=== PATIENT | male | born 2000 | race Caucasian/White ===

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

== ENCOUNTER 2019-02-04 12:31 | Emergency (ER) | payer MEDICAID, SELFPAY ==
[2019-02-04 12:32] VITALS: BP 122/69; PULSE 87; RESP 16; TEMP 36.5; O2SAT 97; BMI 19.1
--- NOTE | 2019-02-04 12:44 | CT_ITS ---
STUDY: CT BRAIN WITHOUT CONTRAST REASON FOR EXAM: Male, 18 years old. Intermittent syncopal episodes over the last 3-4 months RADIATION DOSAGE (If Supplied By Facility): CTDIvol = ( 44.99 ) mGy, DLP = ( 796.11 ) mGycm TECHNIQUE: Transaxial CT imaging of the brain was performed without administration of intravenous contrast material. Individualized dose optimization techniques were used for this CT. COMPARISON: No relevant priors. FINDINGS: Normal soft tissue structures. Normal calvarium. Normal size ventricles and extra-axial spaces for the patient's age. Normal white matter tracts of the cerebral hemispheres. Normal basal ganglia and thalami. Normal brainstem. There is mild ectopia of the cerebellar tonsils (sagittal image 35). There is no intracranial hemorrhage. There are no findings of an acute ischemic infarction. Normal visualized paranasal sinuses. CT/Brain/Head without Contrast IMPRESSION: 1. No acute intracranial hemorrhage or mass effect. 2. Cerebellar tonsillar ectopia. Electronically Signed: Catracho Jaramillo MD at 13:19 EDT , Service support ,
--- NOTE | 2019-02-04 12:45 | EKG12_ITS ---
Test Reason : SYNCOPE Blood Pressure : / mmHG Vent. Rate : 064 BPM Atrial Rate : 064 BPM P-R Int : 138 ms QRS Dur : 086 ms QT Int : 394 ms P-R-T Axes : 047 075 059 degrees QTc Int : 406 ms Normal sinus rhythm with sinus arrhythmia Normal ECG Confirmed by VAN OAKES, PIEDAD ([id number]), film editor supervisor FIONA GREENE ([id number]) on 02/07/2019 9:29:10 AM Referred By: MARILYNN Confirmed By:PIEDAD ARAUJO MD
[2019-02-04] MEDS: 0.9% Normal Saline 1,000 ML 1000 ML IV (13:00)
[2019-02-04 13:10] LABS: Absolute Lymphocyte Count 1.58 X10^3/ul (0.83-4.51); Absolute Neutrophil Count 2.4 X10^3/uL (2.0-7.7); Basophil# 0.03 X10^3/uL; Basophil% 0.7 % (0-1); Eosinophils% 2.2 % (0-5); Hematocrit 49.4 % (40-54); Hemoglobin 17.5 g/dl (13.0-16.5); Lymphocyte # 1.58 X10^3/ul (4.0); Lymphocyte % 35.2 % (19-41); Mean Corp Hgb Conc 35.4 g/gl (32-36); Mean Corpuscular Hgb 31.3 pg (27.0-32.0); Mean Corpuscular Volume 88.2 fL (80-94); Mean Platelet Vol. 9.7 fl (6.2-12.0); Monocyte# 0.37 X10^3/uL; Monocyte% 8.2 % (0-10); Neutrophil % 53.5 % (47-70); Platelet Count 161 K/mm3 (150-450); RBC Distribution Width CV 12.2 % (11.6-14.6); RBC Distribution Width SD 39.7 fl (35.1-43.9); White Blood Count 4.5 K/mm3 (4.4-11.0)
[2019-02-04 13:11] LABS: POSITIVE COUNT NO; POSITIVE DIFFERENTIAL NO; POSITIVE MORPHOLOGY NO
[2019-02-04 13:12] VITALS: BP 117/66; BP 119/65; BP 123/67; PULSE 70; PULSE 72; PULSE 83
[2019-02-04 13:21] LABS: Anion Gap 2 (5-15); BUN 11 mg/dL (7-18); Calcium,Total 9.6 mg/dL (8.5-10.1); Chloride 107 mmol/L (98-107); EST Glomerular Filtration Rate 102 mL/min (>60); Est Glom Filt Rate - Afr Amer 123 mL/min (>60); Estimated Creatinine Clearance 110.68 ml/min; Glucose 72 mg/dL (74-106); Potassium 3.9 mmol/L (3.5-5.1); Sodium Level 139 mmol/L (136-145)
--- NOTE | 2019-02-04 13:21 | ED.DCSUM_ITS ---
- ER Visit Summary Date of Service: 02/04/19 Chief Complaint: [Syncope] History of Present Illness: The patient is a 18 M [presents the emergency department with syncopal episodes for the last 3 to 4 months. Patient states that often times she will pass out 3 or 4 times a day. Patient states that he just feels like everything goes black and he gets tunnel vision and that the last thing he remembers until he wakes up on the floor. He denies any injuries. Patient did pass out this morning. Girlfriend who is with him states that oftentimes she will just stare before passing out and will become unresponsive. She is noticed some intermittent twitching but no continuous seizure-like activity. He has not had any urine or bowel incontinence. He does not have bite wounds related to these episodes. Denies recent illness. He does not have a seizure history. Girlfriend states that she is checked his pulse at times and it feels like his heart is racing but she did not actually determine the right. Patient describes intermittent left-sided chest discomfort. He did complain of intermittent shortness of breath. No family history of Marfan syndrome or connective tissue disorder.] Physical Examination: [HEENT-PERRLA, EOMI. Cranial nerves II through XII grossly intact. TMs clear. Mucous membranes moist. No adenopathy. Cardiovascular-regular rate and rhythm without murmur or ectopy Lungs-clear to auscultation, chest wall stable without crepitus or subcu emphysema Abdomen-normoactive bowel sounds, soft, nontender, no rebound or rigidity, no peritoneal signs. Extremities-intact ?4, normal range of motion, normal pulses, atraumatic] Test Results: [CBC with differential obtained normal. Chemistries unremarkable. Orthostatics were negative. D-dimer is less than 27. EKG obtained arrival shows sinus rhythm with a ventricular rate of 64 bpm with no acute I segment changes. CT scan of the brain without contrast showed mild cerebellar ectopia. I discussed case with neurology at this point I do not believe patient is having seizure like activity and neurologist did not believe the cerebellar ectopia was significant in this instance as far as causing symptoms. I also discussed case with cardiology who recommended Holter monitor and outpatient follow-up for echo and possibly tilt table testing.] Emergency Department Course and Treatment: [Follow-up with cardiology. Patient will have a Holter monitor applied. Patient advised to lay down if he feels symptoms coming on.] Treatment Plan: [Holter monitor and follow-up with cardiology] Disposition: [Discharged home in stable condition] Impression: [Syncope-etiology uncertain] This note was generated with [employer] dictation software. It may contain incorrect words, spelling, and punctuation that were not noted in review of the chart prior to signing ED Disposition - Plan for ED Patient: Referrals: Care Physician,No Primary [Primary Care Provider] -
[2019-02-04 13:31] LABS: D-Dimer Quantitative (DVT/PE) < 0.27 FEU/ug/m (0.27-0.49)
--- NOTE | 2019-02-04 13:45 | ED.DEP ---
ED Disposition - Plan for ED Patient: Instructions: ED Fainting Unkn Cause Referrals: Care Physician,No Primary [Primary Care Provider] - Leigha Sharma MD [STAFF PHYSICIAN] - 3-5 Days
[2019-02-04 14:14] VITALS: BP 103/63; PULSE 60; RESP 17
== END 2019-02-04 14:15 | disposition home or self-care (01) ==
PROVIDERS: Emergency Provider Emergency Medicine
DX: R55 Syncope and collapse (principal); Z72.0 Tobacco use
CPT/HCPCS: 70450; 80048; 85025; 85379; 93005; 93225; 93226; 96360; 99284; A4216

== ENCOUNTER → 2019-02-04 13:59 | Outpatient (CLI) | payer MEDICAID, SELFPAY ==
[2019-02-04 12:32] VITALS: BMI 19.1
== END ==
PROVIDERS: Visit Provider Emergency Medicine
DX: R55 Syncope and collapse (principal)
CPT/HCPCS: 93225; 93226

== ENCOUNTER 2019-05-20 01:00 | Emergency (ER) | payer MEDICAID, SELFPAY ==
[2019-05-20] VITALS (12 sets, daily range): BP systolic 115–134; BP diastolic 65–78; PULSE 54–96; RESP 14–18; TEMP 36.7; O2SAT 98–100; BMI 20.5
--- NOTE | 2019-05-20 01:15 | ED.DCSUM_ITS ---
History of Present Illness Chief Complaint: Suicidal Detail of Chief Complaint: Suicidal ideation Informant: Patient, Significant Other Onset: Month(s) Timing: Waxes and wanes Narrative: Patient presents with police for suicidal ideation. Patient states he had intermittent suicidal thoughts for several years. He is attempted to hang himself in the past and to drink bleach. Most recent attempt was early March. Patient states that he was having thoughts of killing himself today. His plan was to shoot himself with a gun. He does not have direct access to a gun, but states he has friends with guns. Patient went for a walk and went to talk to a woman who is a mother like figure to him. She was able to help him talk through some things. He went back to his home but apparently tried to leave again and would not tell him where he was going. Please arrived to escort the patient to the hospital. Patient has not been in counseling for quite some time. He states he stopped taking his antipsychotic and antidepressant medications about a year ago. Past Medical History - Allergies and Home Meds Allergies/Adverse Reactions: Allergies No Known Allergies Allergy (Verified 05/20/19 01:01) Primary Care Physician: Care Physician,No Primary [Primary Care Provider] - Prior records reviewed: Yes Past Medical History: - - Reviewed Lives: Spouse/ Significant Other Smoking Status: Current every day smoker Alcohol: None Drugs: Marijuana Review of Systems General: Denies: Chills, Fever Eyes: Denies: Visual changes - bilaterally ENT: Denies: Bilateral ear pain Cardiovascular: Denies: Chest pain Respiratory: Denies: Dyspnea, Cough Gastrointestinal: Denies: Abdominal pain, Nausea, Vomiting, Diarrhea Musculoskeletal: Denies: Swelling, Extremity Pain Skin: Denies: Rash Neurological: Denies: Headache Hematologic: Denies: Easy bruising, Easy bleeding Allergy: Denies: Uticaria Physical Exam Vital Signs/Narrative: Vital Signs Temp Pulse Resp BP Pulse Ox 05/20/19 01:02 98.1 F 96 16 127/78 H 99 Inital Vital Signs reviewed: Yes General: Well nourished, Well developed Head: Normocephalic ENT: Moist mucous membranes Cardiovascular: Regular rate, Regular rhythm Respiratory: No distress, CTA bilaterally Abdomen: Soft, Nontender Back: Nontender Extremities: Nontender, No edema Skin: Normal color, No rash Neurological: Alert, Oriented x3 Psychological: - - Patient admits to long-standing depression and suicidal thoughts. Diagnostic/Tx/Re-eval Laboratory Results 05/20/19 05/20/19 05/20/19 01:50 01:50 01:50 WBC 7.7 RBC 5.36 Hgb 16.6 H Hct 49.7 MCV 92.7 MCH 31.0 MCHC 33.4 RDW Std Deviation 40.5 RDW Coeff of Issa 11.8 Plt Count 180 MPV 9.3 Immature Gran % (Auto) 0.100 Neut % (Auto) 58.1 Lymph % (Auto) 30.9 [place] % (Auto) 9.4 Eos % (Auto) 1.0 Baso % (Auto) 0.5 Absolute Neuts (auto) 4.5 Absolute Lymphs (auto) 2.37 Nucleated RBC % 0 Sodium 139 Potassium 3.6 Chloride 105 Carbon Dioxide 30.0 Anion Gap 4 L BUN 20 H Creatinine 1.00 Estim Creat Clear Calc 108.17 Est GFR (MDRD) Af Amer 122 Est GFR (MDRD) Non-Af 101 BUN/Creatinine Ratio 20.0 Glucose 100 Calcium 9.5 Total Bilirubin Direct Bilirubin AST ALT Alkaline Phosphatase Total Protein Albumin Globulin Urine Color Urine Clarity Urine pH Ur Specific [place] Urine Protein Urine Glucose (UA) Urine Ketones Urine Occult Blood Urine Nitrite Urine Bilirubin Urine Urobilinogen Ur Leukocyte Esterase Urine RBC Urine WBC Ur Squamous Epith Cells Urine Bacteria Urine Mucus Urine Opiates Screen Urine Methadone Screen Ur Barbiturates Screen Ur Phencyclidine Scrn Ur Amphetamines Screen U Methamphetamin-MDMA U Benzodiazepines Scrn Urine Cocaine Screen U Cannabinoids Screen Ur Drug Screen Comment Ethyl Alcohol 4.0 05/20/19 05/20/19 05/20/19 01:50 02:20 02:20 WBC RBC Hgb Hct MCV MCH MCHC RDW Std Deviation RDW Coeff of Issa Plt Count MPV Immature Gran % (Auto) Neut % (Auto) Lymph % (Auto) [place] % (Auto) Eos % (Auto) Baso % (Auto) Absolute Neuts (auto) Absolute Lymphs (auto) Nucleated RBC % Sodium Potassium Chloride Carbon Dioxide Anion Gap BUN Creatinine Estim Creat Clear Calc Est GFR (MDRD) Af Amer Est GFR (MDRD) Non-Af BUN/Creatinine Ratio Glucose Calcium Total Bilirubin 0.50 Direct Bilirubin 0.09 AST 15 ALT 16 Alkaline Phosphatase 113 Total Protein 8.1 Albumin 4.5 Globulin 3.6 Urine Color Yellow Urine Clarity Sl. Cloudy Urine pH 6.0 Ur Specific [place] 1.025 Urine Protein 15 H Urine Glucose (UA) Normal Urine Ketones Negative Urine Occult Blood Negative Urine Nitrite Negative Urine Bilirubin Negative Urine Urobilinogen Normal Ur Leukocyte Esterase Negative Urine RBC 0 SEEN Urine WBC 0-5 SEEN Ur Squamous Epith Cells 0 SEEN Urine Bacteria 0 SEEN Urine Mucus 0 SEEN Urine Opiates Screen NEGATIVE Urine Methadone Screen NEGATIVE Ur Barbiturates Screen NEGATIVE Ur Phencyclidine Scrn NEGATIVE Ur Amphetamines Screen NEGATIVE U Methamphetamin-MDMA NEGATIVE U Benzodiazepines Scrn NEGATIVE Urine Cocaine Screen NEGATIVE U Cannabinoids Screen POSITIVE H Ur Drug Screen Comment Ethyl Alcohol - EKG Initial EKG Interpretation: Sinus Rhythm - Sinus at 71 with no ischemia. Normal intervals. - Medical Decision Making After initial evaluation I do have concerns about the patient not being able to guarantee his safety. He has attempted suicide in the past and never sought help. Patient was seen by counseling center staff who agreed the patient would benefit from inpatient treatment. Information will be sent to [facility] for review. Patient was given 1 tab of p.o. Ativan here and a nicotine patch. ED Disposition - Plan for ED Patient: Disposition: Psychiatric Hospital or Unit Diagnosis: Suicidal ideation Referrals: Care Physician,No Primary [Primary Care Provider] -
[2019-05-20 02:01] LABS: Absolute Lymphocyte Count 2.37 X10^3/uL (0.83-4.51); Absolute Neutrophil Count 4.5 X10^3/uL (2.0-7.7); Basophil# 0.04 X10^3/uL; Basophil% 0.5 % (0-1); Eosinophil# 0.08 X10^3/uL; Hematocrit 49.7 % (40-54); Hemoglobin 16.6 g/dL (13.0-16.5); Lymphocyte # 2.37 X10^3/ul (4.0); Lymphocyte % 30.9 % (19-41); Mean Corp Hgb Conc 33.4 g/dL (32-36); Mean Corpuscular Volume 92.7 fL (80-94); Mean Platelet Vol. 9.3 fl (6.2-12.0); Monocyte# 0.72 X10^3/uL; Monocyte% 9.4 % (0-10); NRBC Flagged by Analyzer 0 % (0-5); Neutrophil # 4.46 X10^3/uL (2.7-7.7); Neutrophil % 58.1 % (47-70); Platelet Count 180 K/mm3 (150-450); RBC Distribution Width CV 11.8 % (11.6-14.6); RBC Distribution Width SD 40.5 fl (35.1-43.9); Red Blood Count 5.36 M/mm3 (4.6-6.2); White Blood Count 7.7 K/mm3 (4.4-11.0)
[2019-05-20 02:16] LABS: Anion Gap 4 (5-15); BUN 20 mg/dL (7-18); Calcium,Total 9.5 mg/dL (8.5-10.1); Chloride 105 mmol/L (98-107); EST Glomerular Filtration Rate 101 mL/min (>60); Est Glom Filt Rate - Afr Amer 122 mL/min (>60); Estimated Creatinine Clearance 108.17 ml/min; Glucose 100 mg/dL (74-106); Potassium 3.6 mmol/L (3.5-5.1); Sodium Level 139 mmol/L (136-145)
[2019-05-20 02:41] LABS: Amphetamine Urine VISTA NEGATIVE (<1000 ng/mL); Barbiturate Urine VISTA NEGATIVE (< 200 ng/mL); Benzodiazepine Urine VISTA NEGATIVE (< 200 ng/mL); Cocaine Urine VISTA NEGATIVE (< 300 ng/mL); Ecstacy Urine VISTA NEGATIVE (< 500 ng/mL); Methadone Urine VISTA NEGATIVE (< 300 ng/mL); PCP Urine VISTA NEGATIVE (< 25 ng/mL); THC Urine VISTA POSITIVE (< 50 ng/mL); Vista UDS pH Range 5
--- NOTE | 2019-05-20 02:45 | NURSING ---
CALLED CRISIS AT [phone]
[2019-05-20] MEDS: LORazepam 1 MG Tablet PO ×3 (02:54→17:12)
--- NOTE | 2019-05-20 04:53 | EKG12_ITS ---
Test Reason : [facility] [place] Blood Pressure : / mmHG Vent. Rate : 071 BPM Atrial Rate : 071 BPM P-R Int : 152 ms QRS Dur : 090 ms QT Int : 398 ms P-R-T Axes : 056 072 051 degrees QTc Int : 432 ms Normal sinus rhythm with sinus arrhythmia Normal ECG Confirmed by ISAURA OAKES, JOANA ([id number]), commissioning editor LANNY DONAHUE ([id number]) on 05/22/2019 3:11:33 PM Referred By: ZARA Confirmed By:JOANA DELAROSA MD
[2019-05-20 05:01] LABS: Bacteria 0 SEEN /hpf (None Seen); Mucous, Urine 0 SEEN /hpf (<or=2+); Red Blood Cells-Urine 0 SEEN /hpf (0-5); Squamous Epithelial Cells - UA 0 SEEN /hpf (0-5)
[2019-05-20 05:07] LABS: Color, Urine Yellow (Yellow); Glucose, Dipstick Normal (Normal); Ketone-Dipstick Negative (Negative); Leukocyte Esterase-Dipstick Negative /ul (Negative); Nitrite-Dipstick Negative (Negative); Occult Blood-Urine Negative /ul (Negative); Protein-Dipstick 15 mg/dl (Negative); Specific Gravity, Urine 1.025 (1.002-1.030); Urine Bilirubin Dipstick Negative (Negative); Urine Clarity Sl. Cloudy (Clear); Urine Urobilinogen Normal (Normal)
[2019-05-20 05:13] LABS: White Blood Cells 0-5 SEEN /hpf (0-5)
[2019-05-20 05:17] LABS: AST(SGOT) 15 U/L (15-37); Alanine Aminotransfer ALT/SGPT 16 U/L (16-61); Albumin, Serum 4.5 g/dL (3.2-5.0); Alkaline Phosphatase 113 U/L (45-117); Bilirubin, Direct 0.09 mg/dL (0.00-0.30); Globulin 3.6 g/dL (2.2-4.2); Protein, Total 8.1 g/dL (6.4-8.2)
--- NOTE | 2019-05-20 12:35 | ED.RN ---
PT IS REFUSING TO EAT HIS LUNCH OR BREAKFAST. PT IS STATING HE WILL NOT STAY FOR TIL HE CAN BE TRANSFERRED. PT IS REFUSING ORAL MEDS TO HELP CALM IM DOWN. PT IS CUSSING AND CAUSING A DISTURBANCE AND REFUSES TO FOLLOW REQUEST.
--- NOTE | 2019-05-20 12:44 | ED.RN ---
AWAITING THE ARRIVAL OF [facility] TO MEDICATE PT.
--- NOTE | 2019-05-20 13:42 | ED.RN ---
PT CONTINUES TO STATE HE WILL NOT BE STAYING A COUPLE DAYS. HE REQUESTED THAT HE HAVE HIS PHONE TOLL GATE TENDER IN THE ROOM AND STATED THE SITTER WAS OK WITH THAT. WHEN IT WAS EXPLAINED THAT IT IS POLICY TO NOT HAVE ANYTHING IN THE ROOM HE STATED HE REFUSED TO ALLOW HIS PHONE TO BE CHARGED OUTSIDE THE ROOM AND HIS FATHER WOULD BE IN TO TALK WITH US AND HANDLE THIS MISTREATMENT.
--- NOTE | 2019-05-20 15:53 | NURSING ---
ACCEPTED AT [facility],
--- NOTE | 2019-05-20 16:05 | NURSING ---
1555 CALLED [facility] FOR TRANSPORT. ETA IS 2 HRS
== END 2019-05-20 18:32 ==
PROVIDERS: Emergency Provider Emergency Medicine
DX: R45.851 Suicidal ideations (principal); F17.200 Nicotine dependence, unspecified, uncomplicated
CPT/HCPCS: 80048; 80076; 80307; 80320; 81001; 85025; 93005; 99285; G0480

== ENCOUNTER 2019-10-06 18:44 | Emergency (ER) | payer MEDICAID, SELFPAY ==
[2019-05-20 01:02] VITALS: BMI 20.5
[2019-10-06 18:45] VITALS: BP 126/78; PULSE 71; RESP 15; TEMP 37.4; O2SAT 99; BMI 21.4
--- NOTE | 2019-10-06 18:54 | ED.VIS.GEN ---
History of Present Illness Chief Complaint: Cold Sx Informant: Patient Onset: Days - 3 days Narrative: Patient presents with a 3-day history of cold symptoms including cough, congestion, wheezing. He denies fever. He reports a history of asthma but does not have an inhaler. - Past Medical History (1) Asthma Status: Chronic Past Medical History - Allergies and Home Meds Allergies/Adverse Reactions: Allergies No Known Allergies Allergy (Verified 10/06/19 18:48) Primary Care Physician: Care Physician,No Primary [Primary Care Provider] - Prior records reviewed: Yes Smoking Status: Current every day smoker Review of Systems General: Denies: Fever Eyes: Denies: Visual changes - bilaterally ENT: Reports: - - Sinus congestion. Denies: Bilateral ear pain Cardiovascular: Denies: Chest pain Respiratory: Reports: Cough, Sputum, - - Wheezing. Denies: Dyspnea Gastrointestinal: Denies: Abdominal pain, Nausea, Vomiting, Diarrhea Genitourinary: Denies: Dysuria Musculoskeletal: Denies: Extremity Pain Skin: Denies: Rash Neurological: Denies: Headache Allergy: Denies: Uticaria Physical Exam Vital Signs/Narrative: Vital Signs Temp Pulse Resp BP Pulse Ox 10/06/19 18:45 99.3 F H 71 15 126/78 H 99 Inital Vital Signs reviewed: Yes General: Well nourished, Well developed Head: Normocephalic ENT: Moist mucous membranes Neck: Supple Cardiovascular: Regular rate, Regular rhythm Respiratory: No distress, - - Wheezing and coarse breath sounds noted worse at the left base. Abdomen: Soft, Nontender Extremities: Nontender Skin: Normal color, No rash Neurological: Alert, Oriented x3 Psychological: Normal affect Diagnostic/Tx/Re-eval Impressions Chest X-Ray 10/06/19 19:30 IMPRESSION: No acute cardiopulmonary disease or interval change. Electronically Signed: Bradley Coley DO at 19:45 EST Tel [phone], Service support , 10/06/19 19:30 Chest PA and Lateral [RAD] Stat - Medical Decision Making Patient was given a DuoNeb treatment. On repeat evaluation lungs are clear. X-ray does not show any infiltrate and he has not had fever. I believe he has a viral URI that is triggered his asthma. A prescription for albuterol inhaler will be sent to [facility] [place] for him. ED Disposition - Plan for ED Patient: Disposition: Home or Assisted Living Diagnosis: Viral URI Instructions: URI, Viral, No Abx (Adult), ASTHMA, Acute (Adult) Prescriptions: Albuterol Inhaler [Ventolin Hfa] 1 - 2 puff INHALATION Q4H PRN PRN #1 inhaler PRN Reason: Wheezing Transmission Status: Pending to [facility] Referrals: Fast,Mariela, DO [NON-STAFF] - As Needed
[2019-10-06 19:01] VITALS: RESP 16
[2019-10-06 19:11] VITALS: PULSE 75; RESP 16
[2019-10-06] MEDS: Ipratropium/Albuterol Sulfate 3 ML AMPUL.NEB INHALATION (19:11)
--- NOTE | 2019-10-06 19:30 | RAD_ITS ---
STUDY: X-RAY CHEST REASON FOR EXAM: Male, 19 years old. Cold and sinus congestion for 4 days. TECHNIQUE: PA and lateral views of the chest. COMPARISON: September 18, 2018. FINDINGS: The lungs are well expanded. There is stable calcified granuloma left midlung. There is no demonstrated pleural abnormality. Normal size heart. Normal mediastinum and mahnaz. Normal visualized pulmonary arteries. Normal visualized aortic arch and descending thoracic aorta. Normal visualized thoracic spine. Normal visualized ribs, clavicles, and shoulders. There is no demonstrated abnormality of the visualized soft tissue structures of the upper abdomen. RAD/Chest PA and Lateral IMPRESSION: No acute cardiopulmonary disease or interval change. Electronically Signed: Bradley Coley DO at 19:45 EST Tel [phone], Service support ,
[2019-10-06 20:12] VITALS: RESP 18
== END 2019-10-06 20:13 | disposition home or self-care (01) ==
PROVIDERS: Emergency Provider Emergency Medicine
DX: J06.9 Acute upper respiratory infection, unspecified (principal); J45.909 Unspecified asthma, uncomplicated; F17.200 Nicotine dependence, unspecified, uncomplicated
CPT/HCPCS: 71046; 94640; 99283

== ENCOUNTER 2019-12-08 15:30 | Emergency (ER) | payer MEDICAID, SELFPAY ==
[2019-12-08 15:31] VITALS: BP 141/82; PULSE 80; RESP 18; TEMP 36.7; O2SAT 99; BMI 21.5
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
--- NOTE | 2019-12-08 16:05 | ED.DEP ---
ED Disposition - Plan for ED Patient: Disposition: Home or Assisted Living Instructions: ED Fx Hand Closed Referrals: Migel Ruffin DO [STAFF PHYSICIAN] - As soon as possible Additional Instructions: Ice and elevate to decrease pain and swelling. Tylenol Motrin for pain. Call and follow-up with the orthopedic doctor to have further evaluation your hand. Keep splint dry and clean and keep it on.
[2019-12-08 16:24] VITALS: RESP 17
== END 2019-12-08 16:24 | disposition home or self-care (01) ==
PROVIDERS: Emergency Provider Emergency Medicine
DX: S62.326A Displaced fracture of shaft of fifth metacarpal bone, right hand, initial encounter for closed fracture (principal); Z72.0 Tobacco use; W22.09XA Striking against other stationary object, initial encounter; Y93.89 Activity, other specified; Y92.009 Unspecified place in unspecified non-institutional (private) residence as the place of occurrence of the external cause; Y99.8 Other external cause status
CPT/HCPCS: 29125; 73130; 99282

== ENCOUNTER 2020-02-27 17:35 | Emergency (ER) | payer MEDICAID, SELFPAY ==
[2020-02-27 17:36] VITALS: BP 106/64; PULSE 88; RESP 16; TEMP 36.8; O2SAT 99; BMI 21.3
--- NOTE | 2020-02-27 18:17 | ED.VISSUMM ---
- ER Visit Summary Date of Service: 02/27/20 Chief Complaint: Reportedly nausea and vomiting last night with a small amount of blood. History of Present Illness: The patient is a 19 M no significant past medical or surgical history. Patient states he threw up 3 times last night around 11:00 in the evening. On the third emesis he is small amount of blood. Denies any abdominal or chest pain. No prior history. No blood thinners. No melena. No diarrhea or fever. No abdominal pain. Prior history. Physical Examination: Young male no acute distress vital signs stable afebrile. Does not look septic or toxic. H EENT exam unremarkable. Moist mucous membranes. No blood. Neck nontender no lymphadenopathy. Lungs clear to auscultation bilaterally. Heart regular rhythm no murmur. Abdomen soft nontender nondistended no giving way or masses. Normal bowel sounds. No epigastric left upper or right upper quadrant pain. Extremities moves all 4. Calves nontender. Skin normal no rashes. No petechiae no purpura nor bruising. Neurologically is awake and alert with no focal motor deficits. Test Results: BC normal with a white count of 5 hemoglobin 16. Chemistries normal normal creatinine and gap. Normal BUN. Emergency Department Course and Treatment: History and exam are consistent with a Lilian-Mohan tear possibly. Treatment Plan: Repeat exam doing well at 1900. Return if continued bleeding. Follow-up as needed. Disposition: discharge Impression: Nausea and vomiting with reported hematemesis secondary to Lilian-Mohan tear This note was generated with [employer] dictation software. It may contain incorrect words, spelling, and punctuation that were not noted in review of the chart prior to signing ED Disposition - Plan for ED Patient: Referrals: Care Physician,No Primary [Primary Care Provider] -
[2020-02-27 18:38] LABS: Hematocrit 47.3 % (40-54); Mean Corp Hgb Conc 33.8 g/dL (32-36); Mean Corpuscular Hgb 31.5 pg (27.0-32.0); Mean Corpuscular Volume 93.1 fL (80-94); Mean Platelet Vol. 9.3 fl (6.2-12.0); Platelet Count 178 K/mm3 (150-450); RBC Distribution Width CV 11.6 % (11.6-14.6); Red Blood Count 5.08 M/mm3 (4.6-6.2)
[2020-02-27 18:51] LABS: Anion Gap 3 (5-15); BUN 12 mg/dL (7-18); BUN/Creat Ratio 12.6 RATIO (10-20); Calcium,Total 8.7 mg/dL (8.5-10.1); Chloride 107 mmol/L (98-107); Creatinine, Serum 0.95 mg/dL (0.70-1.30); EST Glomerular Filtration Rate 106 mL/min (>60); Est Glom Filt Rate - Afr Amer 128 mL/min (>60); Estimated Creatinine Clearance 125.26 ml/min; Glucose 81 mg/dL (74-106); Potassium 4.3 mmol/L (3.5-5.1); Sodium Level 141 mmol/L (136-145)
--- NOTE | 2020-02-27 19:00 | ED.DEP ---
ED Disposition - Plan for ED Patient: Disposition: Home or Assisted Living Instructions: ED Bleed UGI Stable Referrals: Brian Hoffman MD [STAFF PHYSICIAN] - 3-5 Days if not improving Additional Instructions: Turn if feeling worse. If you have more vomiting of blood or pass black stool. [place] diet increase as tolerated.
== END 2020-02-27 19:13 | disposition home or self-care (01) ==
PROVIDERS: Emergency Provider Emergency Medicine
DX: K22.6 Gastro-esophageal laceration-hemorrhage syndrome (principal); Z72.0 Tobacco use
CPT/HCPCS: 80048; 85027; 99283; A4216

== ENCOUNTER 2020-09-05 16:42 | Emergency (ER) | payer MEDICAID, SELFPAY ==
[2020-09-05 16:44] VITALS: BP 109/86; PULSE 125; RESP 18; TEMP 36.6; O2SAT 98; BMI 22.4
--- NOTE | 2020-09-05 17:32 | ED.VIS.PSYCH ---
History of Present Illness Chief Complaint: Mental Health Informant: Patient Onset: - - a long time Context: Gradual Onset Timing: Continuous Current Severity: Severe Maximum Severity: Severe Worsened by: Situational factors Relieved by: cutting Associated Symptoms: Depressed, Change in Eating, Change in sleeping, Decreased Interest, Decreased Concentration, Hopelessness, Suicidal Thoughts. Negative for: Visual Hallucinations, Auditory Hallucinations Specific plan (suicidal thought): shoot himself Narrative: Patient presents with suicidal thoughts and asking for help, he states I would like to talk to crisis he has spoken with him before but he does not have established mental health provider/care and takes no prescription medications. He does not use drugs or alcohol. He has cut himself on both of his thighs today with a razor blade that was clean, he states he was not trying to kill himself with this, just trying to relieve stress and has cut himself in the thighs before. Patient denies any recent illnesses. He has not had Covid that he knows of, nor has he had any symptoms of it recently. His last tetanus was between 5 and 10 years ago, up-to-date for this injury. - Past Medical History (1) Asthma Status: Chronic Past Medical History - Allergies and Home Meds Allergies/Adverse Reactions: Allergies No Known Allergies Allergy (Verified 02/27/20 17:39) Primary Care Physician: Care Physician,No Primary [Primary Care Provider] - Smoking Status: Current every day smoker Alcohol: None Drugs: None Review of Systems General: Denies: Chills, Fever, Sweats Eyes: Denies: Visual changes - bilaterally, Diplopia ENT: Denies: Rhinorrhea, Sore throat Cardiovascular: Denies: Chest pain, Palpitations Respiratory: Denies: Dyspnea, Cough, Dyspnea on exertion Gastrointestinal: Denies: Abdominal pain, Nausea, Vomiting, Diarrhea, Melena, Hematochezia Genitourinary: Denies: Dysuria, Hematuria, Frequency Musculoskeletal: Denies: Back pain, Extremity Pain Skin: Denies: Rash, Wounds Neurological: Denies: Headache, Weakness, Numbness Psych: Reports: Depression, Suicidal thoughts, Suicidal ideations Physical Exam Vital Signs/Narrative: Vital Signs Temp Pulse Resp BP Pulse Ox 09/05/20 16:44 97.9 F 125 H 18 109/86 H 98 Inital Vital Signs reviewed: Yes General: Well nourished, Well developed, - - No acute distress, cooperative Head: Normocephalic, Atraumatic Eyes: Perrl, EOMI ENT: Moist mucous membranes, No rhinorrhea Neck: Supple, Nontender, No lymphadenopathy - And no thyromegaly/tenderness Cardiovascular: Regular rate, Regular rhythm, No murmurs Respiratory: No distress, CTA bilaterally, Chest nontender Abdomen: Soft, Nontender, Nondistended, Normal bowel sounds Back: Nontender, Normal Inspection Extremities: Nontender, No Edema Skin: Normal color, No rash, Trauma - Multiple fresh parallel cutaneous lacerations self-inflicted by the patient on both anterior mid thighs. None are tender or showing any signs of infection or active bleeding. There are about 10 total, only one of them is slightly distracted. Neurological: Alert, Oriented x3, Cranial nerves II-XII grossly intact, Normal Strength, Normal Sensation, Normal Gait Psych: Normal Speech Pattern, Logical sequential goal directed thoughts, Normal Stable Appropriate Affect, Good Insight, Suicidal thoughts, Poor Judgement. Negative for: Homicidal thoughts, Hallucinations Diagnostic/Tx/Re-eval 09/05/20 18:20 Mucosa - Nose SARS-CoV-2 Antigen (Rapid) - Final Laboratory Results 09/05/20 09/05/20 09/05/20 17:22 17:22 17:22 WBC 6.6 RBC 5.20 Hgb 16.4 Hct 47.6 MCV 91.5 MCH 31.5 MCHC 34.5 RDW Std Deviation 39.9 RDW Coeff of Issa 11.9 Plt Count 211 MPV 9.1 Immature Gran % (Auto) 0.200 Neut % (Auto) 75.3 H Lymph % (Auto) 16.5 L [place] % (Auto) 7.0 Eos % (Auto) 0.5 Baso % (Auto) 0.5 Absolute Neuts (auto) 5.0 Absolute Lymphs (auto) 1.09 Nucleated RBC % 0 Sodium 139 Potassium 3.5 Chloride 108 H Carbon Dioxide 28.0 Anion Gap 3 L BUN 10 Creatinine 1.01 Estim Creat Clear Calc 122.47 Est GFR (MDRD) Af Amer 119 Est GFR (MDRD) Non-Af 99 BUN/Creatinine Ratio 9.9 L Glucose 112 H Calcium 9.1 Urine Opiates Screen Urine Methadone Screen Ur Barbiturates Screen Ur Phencyclidine Scrn Ur Amphetamines Screen U Methamphetamin-MDMA U Benzodiazepines Scrn Urine Cocaine Screen U Cannabinoids Screen Ur Drug Screen Comment Ethyl Alcohol 6.0 09/05/20 17:22 WBC RBC Hgb Hct MCV MCH MCHC RDW Std Deviation RDW Coeff of Issa Plt Count MPV Immature Gran % (Auto) Neut % (Auto) Lymph % (Auto) [place] % (Auto) Eos % (Auto) Baso % (Auto) Absolute Neuts (auto) Absolute Lymphs (auto) Nucleated RBC % Sodium Potassium Chloride Carbon Dioxide Anion Gap BUN Creatinine Estim Creat Clear Calc Est GFR (MDRD) Af Amer Est GFR (MDRD) Non-Af BUN/Creatinine Ratio Glucose Calcium Urine Opiates Screen NEGATIVE Urine Methadone Screen NEGATIVE Ur Barbiturates Screen NEGATIVE Ur Phencyclidine Scrn NEGATIVE Ur Amphetamines Screen NEGATIVE U Methamphetamin-MDMA NEGATIVE U Benzodiazepines Scrn NEGATIVE Urine Cocaine Screen NEGATIVE U Cannabinoids Screen POSITIVE H Ur Drug Screen Comment Ethyl Alcohol The self-inflicted abrasions/lacerations were cleansed and dressed by nursing, and I had them apply some Steri-Strips over the ones on the right where included is one that is slightly distracted. I do not think it needs to be repaired. Is not through the dermis. The rest of his labs are as above and he is medically cleared for crisis evaluation. When patient presented to triage, according to the triage nurse, he stated that he had thoughts of shooting himself. He immediately asked her if he could get arrested while he was in the hospital. This led to him admitting that he stole car and is wanted by the police. He also stated that although he was not cutting his legs in order to kill himself, he knew that those lacerations would get him into a hospital for mental health help. However, later in the hospital visit after social work evaluated him and determined that he needed to be admitted/transferred for a psychiatric evaluation patient is adamant that he cannot stay tonight needs to go home to see his mom because he talk to her on the phone, she sounds strong out on drugs, she has been increasing her use lately, and he is afraid that she is going to overdose and and he already has a father that was last year from drug use, and does not want to lose his mom, saying that he wants to come back tomorrow. He has been leading me, social work, and the triage nurse all to believe that he is suicidal although he did not attempt suicide with his leg lacerations, however he seems to be manipulative and it is unknown what his true intentions are. We discussed with Rosario with crisis/counseling center, who knows the patient well because he has called daily for a week or 2, and she also believes that the patient should be admitted to psychiatry even if against his will because he certainly will benefit from psychiatric help that he has not had. We gave the patient multiple options, we told him that he could have his mom come to the hospital. He states she is blind and cannot do that. We stated that he could call someone since he has his phone, to pick her up and bring her here and we would allow them to visit. He states he cannot get a hold of anyone. We stated that he could call 911, have them go pick his mother up and bring her here to the ER and we would be happy to care for her if she is lethargic after using drugs. He states he does not know her address to send EMS although he does not know where in [place] she lives. We asked him to call his mom since he talked to her earlier, so that she could give him the address. He refuses. The patient is now getting worked up, he is offered some Ativan, and advised that he is pink slipped and will be admitted/transferred to [facility]. ED Disposition - Plan for ED Patient: Disposition: Psychiatric Hospital or Unit Diagnosis: Suicidal ideation, Injury, self-inflicted Referrals: Care Physician,No Primary [Primary Care Provider] -
--- NOTE | 2020-09-05 17:38 | ED.RN ---
[id number]--THIS RN REQUESTS SITTER TO BEDSIDE AND HAS DEPUTY KATIETNER TO BEDSIDE
[2020-09-05 17:56] LABS: Absolute Lymphocyte Count 1.09 X10^3/uL (0.83-4.51); Anion Gap 3 (5-15); BUN 10 mg/dL (7-18); BUN/Creat Ratio 9.9 RATIO (10-20); Basophil# 0.03 X10^3/uL; Basophil% 0.5 % (0-1); Calcium,Total 9.1 mg/dL (8.5-10.1); Chloride 108 mmol/L (98-107); Creatinine, Serum 1.01 mg/dL (0.70-1.30); EST Glomerular Filtration Rate 99 mL/min (>60); Eosinophil# 0.03 X10^3/uL; Eosinophils% 0.5 % (0-5); Est Glom Filt Rate - Afr Amer 119 mL/min (>60); Estimated Creatinine Clearance 122.47 ml/min; Glucose 112 mg/dL (74-106); Hematocrit 47.6 % (40-54); Hemoglobin 16.4 g/dL (13.0-16.5); Lymphocyte # 1.09 X10^3/ul (4.0); Lymphocyte % 16.5 % (19-41); Mean Corp Hgb Conc 34.5 g/dL (32-36); Mean Corpuscular Hgb 31.5 pg (27.0-32.0); Mean Corpuscular Volume 91.5 fL (80-94); Mean Platelet Vol. 9.1 fl (6.2-12.0); Monocyte# 0.46 X10^3/uL; NRBC Flagged by Analyzer 0 % (0-5); Neutrophil # 4.99 X10^3/uL (2.7-7.7); Neutrophil % 75.3 % (47-70); Platelet Count 211 K/mm3 (150-450); Potassium 3.5 mmol/L (3.5-5.1); RBC Distribution Width CV 11.9 % (11.6-14.6); RBC Distribution Width SD 39.9 fl (35.1-43.9); Sodium Level 139 mmol/L (136-145); White Blood Count 6.6 K/mm3 (4.4-11.0)
[2020-09-05 17:57] LABS: Amphetamine Urine VISTA NEGATIVE (<1000 ng/mL); Barbiturate Urine VISTA NEGATIVE (< 200 ng/mL); Benzodiazepine Urine VISTA NEGATIVE (< 200 ng/mL); Cocaine Urine VISTA NEGATIVE (< 300 ng/mL); Ecstacy Urine VISTA NEGATIVE (< 500 ng/mL); Methadone Urine VISTA NEGATIVE (< 300 ng/mL); PCP Urine VISTA NEGATIVE (< 25 ng/mL); THC Urine VISTA POSITIVE (< 50 ng/mL); Vista UDS pH Range 6
--- NOTE | 2020-09-05 18:20 | CM.ED ---
SOCIAL WORK ASSESSMENT Informant: Dr. Stock Reason for Consult: Suicidal ideation Chief Compliant: Patient presents to [facility] ER with bilateral self inflicted cuts to thighs. Patient informed Triage Nurse that it was a way to get him into the hospital. Patient reporting to need help. Patient admits to suicidal ideation over the last month with plan to blow my brains out. Marital/Social History: Single Living Situation: Patient reports lives with his mother's best friend whom he identifies as 2nd mom. Patient states biological mother is a drug addict and resides in [place]. Support/Resources: Crisis team, friends. Patient states has called 24 hour crisis line multiple times and it has helped. Education: HS grad Mental Health Treatment/History: PTSD, Bipolar. Patient states not currently on any medication and not following with any outpatient services. Patient states need to get re-established with [facility]. Triggers/Stressors: Mother's drug addiction, patient reports October 12 will be the one year anniversary of father's by drug overdose. 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 Patient states currently uses marijuana. Risk to Self/Others: Suicidal- Patient admits to suicidal thoughts. Patient vague when discussing suicidal ideation. Patient reported in triage suicidal thoughts with plan to shoot himself. Homicidal- Patient denies homicidal ideation at this time. Self-Harm- Patient reports started cutting in [id number]. Mental Status Exam: Orientation-A&Ox3 Memory- fair Appearance/General Behavior: disheveled, agitated Mood/Affect: depressed, anxious Communication Pattern: responds to questions, rambling Thought Process: preoccupied Judgment: poor Assessment: Met with patient in room. Introduced role and reason for referral. Patient with sitter protocol in place. Patient reports history of self-harm: cutting, that began in . Patient states uses physical pain to deal with mental pain. Inquired about suicidal ideation. Patient states I'm going to be honest with you, yes I have thoughts. Patient states utilizes the 24 hour crisis hotline and has talked with Rosario many times. Patient states, I know I need help. Patient reports history of PTSD and Bipolar Disorder. Patient states is not on medications and not currently in counseling. Collaboration with Dr. Stock. Recommending inpatient psych hospitalization for stabilization. This worker to facilitate placement. Call to Crisis, spoke with Rosario to gather additional information. Rosario reports patient would benefit from hospitalization. Patient had voiced vague thoughts and unhealthy coping by cutting. Rosario states patient did report about 2 months ago, If he had a gun he would kill himself. Plan: Referral for inpatient psych. [place] added to chart.
--- NOTE | 2020-09-05 18:25 | CM.ED ---
SOCIAL WORK Referral called to [facility], spoke with Tamika. Patient states does have bed for patient and reports acceptance pending medical clearance. Dinora Macias, SPECIALTY DEVELOPMENT CONSULTANT, PUTTY MAKER
[2020-09-05] MEDS: Ibuprofen 600 MG Tablet PO (19:26)
[2020-09-05] MEDS: LORazepam 1 MG Tablet PO (19:26)
[2020-09-05 19:43] VITALS: RESP 16
--- NOTE | 2020-09-05 20:00 | CM.ED ---
SOCIAL WORK Patient has been medically cleared and referral faxed to [facility]. Awaiting accepting information at this time. Dinora Macias, FLORAL DECORATOR, YEAST WASHER
--- NOTE | 2020-09-05 20:20 | CM.ED ---
SOCIAL WORK Call to Tamika at [facility] to check on status of referral. Tamika working on another admission. Will get back to this worker. Dinora Macias, ROTARY FURNACE OPERATOR, PARTS SALES REPRESENTATIVE
[2020-09-05 21:00] VITALS: BP 107/63; PULSE 75; RESP 16; TEMP 36.4; O2SAT 98
--- NOTE | 2020-09-05 21:00 | CM.ED ---
SOCIAL WORK Call to [facility] to check on accepting information, spoke with Tamika. Patient accepted by Dr. Moody. [place] to set up transport. Staff updated. Plan: [facility] Macias MSW, FUEL VERIFICATION TECHNICIAN
[2020-09-05 21:40] VITALS: BP 107/63; PULSE 75; RESP 16; TEMP 36.4; O2SAT 98
== END 2020-09-05 22:49 ==
PROVIDERS: Emergency Provider Emergency Medicine
DX: R45.851 Suicidal ideations (principal); S71.112A Laceration without foreign body, left thigh, initial encounter; S71.111A Laceration without foreign body, right thigh, initial encounter; J45.909 Unspecified asthma, uncomplicated; F17.200 Nicotine dependence, unspecified, uncomplicated; Y28.8XXA Contact with other sharp object, undetermined intent, initial encounter; Y93.89 Activity, other specified; Y92.009 Unspecified place in unspecified non-institutional (private) residence as the place of occurrence of the external cause; Y99.8 Other external cause status
CPT/HCPCS: 36415; 80048; 80307; 82077; 85025; 87426; 99285

== ENCOUNTER 2023-11-16 21:06 | Emergency (ER) | payer MEDICAID, SELFPAY ==
[2023-11-16 21:07] VITALS: BP 124/97; PULSE 120; RESP 18; TEMP 36.6; O2SAT 100; BMI 22.1
--- NOTE | 2023-11-16 21:12 | EDS_ITS ---
HPI History of Present Illness Chief Complaint: Nausea/Vomiting/Diarrhea Informant: patient Onset/Context/Timing Onset: Weeks (2) Context: Gradual Onset Timing: Continuous Quality: Aching Location: Lower abdomen Worsened by: Eating, drinking Relieved by: Gatorade Narrative Narrative: Patient presents with nausea, vomiting, diarrhea, and sore throat that has been getting worse over the past 2 weeks. Patient states he is having difficulty keeping any fluids down. Patient states he has pain over his lower abdomen. Patient describes it as aching. Patient states he vomits anything he tries to eat or drink. Patient states he has been able to keep some Gatorade down. Patient admits to some rhinorrhea. Patient admits to some pain in his back and a headache as well. Patient denies any fevers or chills. PFSH PFSH Medical History no medical history no medical history Home Medications NK 09/05/20 [History Last Taken Unknown] Allergy/AdvReac Type Severity Reaction Status Date / Time No Known Allergies Allergy Verified 11/16/23 21:07 Surgical History no surgical history no surgical history Social History Smoking Status: Current every day smoker tobacco type: cigarettes ROS ROS ED Constitutional Constitutional ED: Denies chills or fever(s) Eyes Eyes: Denies blurry vision or change in vision ENT ENT ED: Reports rhinorrhea and sore throat Cardiovascular Cardiovascular: Reports chest pain; Denies palpitations Respiratory/Chest Respiratory/Chest: Denies cough or dyspnea Gastrointestinal Gastrointestinal: Reports diarrhea, nausea and vomiting Genitourinary Genitourinary ED: Denies dysuria or hematuria Musculoskeletal Musculoskeletal: Reports back pain; Denies neck pain Integumentary Denies abscess or rash Neurologic Neurologic: Reports headache(s); Denies weakness Allergic/Immunologic Allergic/Immunologic ED: Denies mouth swelling or urticaria EXAM Physical Exam Const Vital Signs: 11/16/23 21:07 11/16/23 22:48 Temperature 98 F 97.8 F Temperature Source Temporal Pulse Rate 120 H 81 Respiratory Rate 18 16 Blood Pressure 124/97 H 112/74 Blood Pressure Mean 106 86 Pulse Ox 100 99 Oxygen Delivery Method Room Air Positive well nourished and well developed General Appearance ED: well developed and NAD HEENT Reports moist mucous membranes Neck supple and no JVD Resp normal respiratory effort and clear to auscultation bilaterally Cardio regular rhythm Rate: tachycardic GI non-distended Palpation: soft and tender LLQ, RLQ and suprapubic; Negative for guarding or rebound tenderness present Neuro oriented x3, CN's II-XII intact bilaterally and no sensory deficits noted Sensorium / Orientation: alert Motor Exam: strength 5/5 throughout Psych mental status grossly normal MDM MDM MDM Narrative Medical decision making narrative: Differential diagnosis includes viral illness, dehydration, electrolyte abnormality, urinary tract infection, and mesenteric adenitis. CBC will be obtained to assess for leukocytosis and anemia. Basic metabolic profile will be obtained to assess for electrolyte abnormality and renal function. Urinalysis will be obtained to assess for urinary tract infection and hematuria. COVID-19, influenza, and RSV PCR will be obtained to assess for viral illness. Lab Data Attestation: I reviewed the patient's lab results. Lab results narrative: CBC was reviewed and was within normal limits. Patient metabolic profile was reviewed and showed a mildly elevated glucose of 153. Anion gap was normal. CO2 is normal. Remainder is within normal limits. Urinalysis was reviewed. There is no evidence of urinary tract infection or hematuria. COVID-19 PCR was reviewed and was negative. Influenza PCR was reviewed and was negative for influenza A and influenza B. RSV PCR was reviewed and was negative. Labs: Laboratory Results - last 24 hr 11/16/23 11/16/23 21:45 22:26 WBC 5.8 RBC 4.80 Hgb 15.4 Hct 44.9 MCV 93.5 MCH 32.1 H MCHC 34.3 RDW Std Deviation 39.5 RDW Coeff of Issa 11.4 L Plt Count 174 MPV 9.0 Immature Gran % (Auto) 0.200 Neut % (Auto) 56.1 Lymph % (Auto) 31.7 [place] % (Auto) 10.0 Eos % (Auto) 1.7 Baso % (Auto) 0.3 Absolute Neuts (auto) 3.3 Absolute Lymphs (auto) 1.84 Nucleated RBC % 0 Sodium 140 Potassium 3.9 Chloride 106 Carbon Dioxide 28.0 Anion Gap 6 BUN 13 Creatinine 1.03 Estim Creat Clear Calc 116.00 Est GFR (MDRD) Af Amer 113 Est GFR (MDRD) Non-Af 94 BUN/Creatinine Ratio 12.6 Glucose 153 H Calcium 9.3 Urine Color Yellow Urine Clarity Clear Urine pH 7.0 Ur Specific [place] 1.010 Urine Protein Negative Urine Glucose (UA) Normal Urine Ketones Negative Urine Occult Blood Negative Urine Nitrite Negative Urine Bilirubin Negative Urine Urobilinogen Normal Ur Leukocyte Esterase Negative Urine RBC 0 SEEN Urine WBC 0 SEEN Ur Squamous Epith Cells 0 SEEN Urine Bacteria 0 SEEN Urine Mucus 0 SEEN Treatment and Re-Evaluation :: Patient was given IV fluids and Zofran. Patient was advised of his findings. Patient was instructed to start with a liquid diet and advance as tolerated. Patient was instructed to follow-up with a primary care physician in 5 to 7 days. Patient was given a note for work. Patient understood and was agreeable with the plan. All questions were answered. Discharge Plan Triage Chief Complaint: Nausea/Vomiting/Diarrhea Other Complaint: Sore Throat ED Provider: Brian Hoskins Dx/Rx/DC Orders Clinical Impression: Nausea, vomiting, and diarrhea, Viral illness Instructions: ED Gastroenteritis, Viral (Adult), ED Vomit Diarrhea [place] Adult Prescriptions: No Action NK Stand Alone Forms: ED Work / School Excuse Primary Care Provider: Care Physician,No Primary Referrals: Jasmine Quesada MD [Med Staff - Top Stop Attacher] - 5-7 Days Care Physician,No Primary [Primary Care Provider] - Disposition Disposition: Home, Self Care Discharge Date/Time: 11/16/23 22:50
[2023-11-16] MEDS: Ondansetron 4 MG/2 ML Vial IV (21:47)
[2023-11-16] MEDS: 0.9% Normal Saline (1000mL) 1,000 ML 1000 ML IV (21:47)
[2023-11-16 21:55] LABS: Absolute Lymphocyte Count 1.84 X10^3/uL (0.83-4.51); Absolute Neutrophil Count 3.3 X10^3/uL (2.0-7.7); Basophil# 0.02 X10^3/uL; Basophil% 0.3 % (0-1); Eosinophils% 1.7 % (0-5); Hematocrit 44.9 % (40-54); Hemoglobin 15.4 g/dL (13.0-16.5); Lymphocyte # 1.84 X10^3/ul (0.83-4.51); Lymphocyte % 31.7 % (19-41); Mean Corp Hgb Conc 34.3 g/dL (32-36); Mean Corpuscular Hgb 32.1 pg (27.0-32.0); Mean Corpuscular Volume 93.5 fL (80-94); Monocyte# 0.58 X10^3/uL; NRBC Flagged by Analyzer 0 % (0-5); Neutrophil # 3.25 X10^3/uL (2.7-7.7); Neutrophil % 56.1 % (47-70); Platelet Count 174 K/mm3 (150-450); RBC Distribution Width CV 11.4 % (11.6-14.6); RBC Distribution Width SD 39.5 fl (35.1-43.9); White Blood Count 5.8 K/mm3 (4.4-11.0)
[2023-11-16 22:11] LABS: Anion Gap 6 (5-15); BUN 13 mg/dL (7-18); BUN/Creat Ratio 12.6 RATIO (10-20); Calcium,Total 9.3 mg/dL (8.5-10.1); Chloride 106 mmol/L (98-107); Creatinine, Serum 1.03 mg/dL (0.70-1.30); EST Glomerular Filtration Rate 94 mL/min (>60); Est Glom Filt Rate - Afr Amer 113 mL/min (>60); Glucose 153 mg/dL (74-106); Potassium 3.9 mmol/L (3.5-5.1); Sodium Level 140 mmol/L (136-145)
[2023-11-16 22:30] LABS: Bacteria 0 SEEN /hpf (None Seen); Mucous, Urine 0 SEEN /hpf (<or=2+); Red Blood Cells-Urine 0 SEEN /hpf (0-5); Squamous Epithelial Cells - UA 0 SEEN /hpf (0-5); White Blood Cells 0 SEEN /hpf (0-5)
[2023-11-16 22:32] LABS: Color, Urine Yellow (Yellow); Glucose, Dipstick Normal (Normal); Ketone-Dipstick Negative (Negative); Leukocyte Esterase-Dipstick Negative /ul (Negative); Nitrite-Dipstick Negative (Negative); Occult Blood-Urine Negative /ul (Negative); Protein-Dipstick Negative (Negative); Urine Bilirubin Dipstick Negative (Negative); Urine Clarity Clear (Clear); Urine Urobilinogen Normal (Normal)
[2023-11-16 22:48] VITALS: BP 112/74; PULSE 81; RESP 16; TEMP 36.6; O2SAT 99
== END 2023-11-16 22:50 | disposition home or self-care (01) ==
PROVIDERS: Emergency Provider Emergency Medicine; Visit Provider Emergency Medicine
DX: B34.9 Viral infection, unspecified (principal); F17.210 Nicotine dependence, cigarettes, uncomplicated
CPT/HCPCS: 80048; 81001; 85025; 87631; 96361; 96374; 99284; J7030; A4216; J2405